=== PATIENT | female | born 1980 | race Caucasian/White ===

== ENCOUNTER 2017-06-05 19:11 | Emergency (ER) | payer MEDICAID ==
[~2017-06-05] VITALS: Ht 162.6 cm; Wt 97.0 kg
[~2017-06-05 19:11] MED LIST: IBUP200C PO; NAPR-688 PO; ONDA4TAB35 PO; RANI150T9 PO
[2017-06-05 19:20] VITALS: Ht 162.6 cm; Wt 97.0 kg
[2017-06-05 20:39] LABS: BASOPHILS % 0.5 % (0.0-2.0); EOSINOPHILS # 0.2 10^3/ul (0.0-0.5); EOSINOPHILS % 2.3 % (0.0-7.0); HEMATOCRIT 34.8 % (37.0-47.0); HEMOGLOBIN 11.9 g/dl (12.0-16.0); LYMPHOCYTES # 2.8 10^3/ul (0.8-2.9); LYMPHOCYTES % 37.7 % (15.0-51.0); MEAN CORPUSCULAR HEMOGLOBIN 27.7 pg (29.0-33.0); MEAN CORPUSCULAR HGB CONC 34.2 g/dl (32.0-37.0); MEAN CORPUSCULAR VOLUME 80.9 fl (82.0-101.0); MEAN PLATELET VOLUME 9.7 fl (7.4-10.4); MONOCYTE # 0.4 10^3/ul (0.3-0.9); MONOCYTES % 5.7 % (0.0-11.0); NEUTROPHILS % 53.1 % (39.0-77.0); PLATELET COUNT 225 10^3/UL (140-415); RED CELL DISTRIBUTION WIDTH 13.7 % (11.5-14.5); WHITE BLOOD COUNT 7.5 10^3/ul (4.8-10.8)
[2017-06-05 20:45] LABS: ADD UMIC YES; UR ASCORBIC ACID NEGATIVE (NEGATIVE); UR BILIRUBIN (Dip) NEGATIVE (NEGATIVE); UR BLOOD (Dip) 3+ mg/dL (NEGATIVE); UR CLARITY CLEAR (CLEAR); UR COLOR YELLOW (YELLOW); UR GLUCOSE (Dip) NEGATIVE (NEGATIVE); UR KETONES (Dip) NEGATIVE (NEGATIVE); UR LEUKOCYTE ESTERASE (Dip) TRACE Leu/ul (NEGATIVE); UR MUCUS FEW /HPF (NONE SEEN); UR NITRITE (Dip) NEGATIVE (NEGATIVE); UR RBC > 182 /HPF (0-5); UR SPECIFIC GRAVITY (Dip) 1.011 (1.003-1.030); UR TOTAL PROTEIN (Dip) NEGATIVE (NEGATIVE); UR UROBILINOGEN (Dip) NEGATIVE (NEGATIVE)
--- NOTE | 2017-06-05 20:47 | ERD ---
ER Documentation Chief Complaint Date/Time DATE: 06/05/17 TIME: 20:46 Chief Complaint vag bleed today, 5 weeks preg HPI 36 year old female comes in A1 with LMP 05/01/17 comes in with vagina bleeding and pelvic pain with small amounts of clots since today. Patient states she has cramping suprapubic pain. No fever, chest pain, dizziness. ROS All systems reviewed and are negative except as per history of present illness. Medications Home Meds Active Scripts Ondansetron Hcl* (Zofran* ODT) 4 mg -ODT Tab.disper, 4 MG PO Q6 Y for NAUSEA AND /OR VOMITING, #10 TAB Prov:DOMINICK ARTEAGA 04/24/16 Naproxen* (Naproxen*) 500 Mg Tablet, 500 MG PO BID Y for PAIN, #20 TAB Prov:CHANDLERDOMINICK DO 04/24/16 Ranitidine Hcl* (Zantac*) 150 Mg Tablet, 150 MG PO BID Y for EPIGASTRIC PAIN, # 30 TAB Prov:CHANDLERDOMINICK 04/24/16 Reported Medications Ibuprofen* (Ibuprofen*) 200 Mg Capsule, 200 MG PO QID Y for PAIN, CAP 04/24/16 Allergies Allergies: Coded Allergies: No Known Drug Allergies (Verified Allergy, Mild, 04/24/16) PMhx/Soc Medical and Surgical Hx: pt denies Medical Hx, pt denies Surgical Hx History of Surgery: Yes (S-SECTION X 2,L KNEE x 2) Anesthesia Reaction: No Hx Neurological Disorder: No Hx Respiratory Disorders: No Hx Cardiac Disorders: No Hx Psychiatric Problems: No Hx Miscellaneous Medical Probl: No Hx Alcohol Use: No Hx Substance Use: No Hx Tobacco Use: No Smoking Status: Never smoker Physical Exam Vitals Vital Signs Date Time Temp Pulse Resp B/P Pulse Ox O2 Delivery O2 Flow Rate FiO2 06/05/17 22:29 98.4 82 18 130/80 98 Room Air 06/05/17 19:20 99.1 75 18 142/89 98 Physical Exam Const: well appearing, nontoxic Head: Atraumatic Eyes: Normal Conjunctiva ENT: Normal External Ears, Nose and Mouth. Neck: Full range of motion..~ No meningismus. Resp: Clear to auscultation bilaterally Cardio: Regular rate and rhythm, no murmurs Abd: Soft, non tender, non distended. Normal bowel sounds Skin: No petechiae or rashes Back: No midline or flank tenderness Ext: No cyanosis, or edema Neur: Awake and alert Psych: Normal Mood and Affect Result Diagram: 06/05/172024 Results 24 hrs Laboratory Tests Test 06/05/17 20:03 06/05/17 20:25 Urine Color YELLOW Urine Clarity CLEAR Urine pH 6.0 Urine Specific [place] 1.011 Urine Ketones NEGATIVEmg/dL Urine Nitrite NEGATIVEmg/dL Urine Bilirubin NEGATIVEmg/dL Urine Urobilinogen NEGATIVEmg/dL Urine Leukocyte Esterase TRACELeu/ul Urine Microscopic RBC > 182/HPF Urine Microscopic WBC 0/HPF Urine Mucus FEW/HPF Urine Hemoglobin 3+mg/dL Urine Glucose NEGATIVEmg/dL Urine Total Protein NEGATIVEmg/dl White Blood Count 7.510^3/ul Red Blood Count 4.3010^6/ul Hemoglobin 11.9g/dl Hematocrit 34.8% Mean Corpuscular Volume 80.9fl Mean Corpuscular Hemoglobin 27.7pg Mean Corpuscular Hemoglobin Concent 34.2g/dl Red Cell Distribution Width 13.7% Platelet Count 69654^3/UL Mean Platelet Volume 9.7fl Neutrophils % 53.1% Lymphocytes % 37.7% Monocytes % 5.7% Eosinophils % 2.3% Basophils % 0.5% Nucleated Red Blood Cells % 0.0/100WBC Neutrophils # (Manual) 4.010^3/ul Lymphocytes # 2.810^3/ul Monocytes # 0.410^3/ul Eosinophils # 0.210^3/ul Basophils # 0.010^3/ul Nucleated Red Blood Cells # 0.010^3/ul Beta HCG, Quantitative 4461.7mIU/ml Radiology Main Line: [phone] DIAGNOSTIC IMAGING REPORT Patient: KEYONNA SAEED : 1980 Age: 36 Sex: F [id number] DOS: 06/05/172009 Ordering MD: ML MIRANDA PA-C Location: [facility] Room/Bed: PROCEDURE: OB Ultrasound. CLINICAL INDICATION: Positive test. Vaginal bleeding. TECHNIQUE: Ultrasound of the pelvis was performed with transabdominal and transvaginal sonography in the axial and sagittal planes. COMPARISON: No prior study is available for comparison. FINDINGS: There is a single intrauterine gestational sac. It is too early to visualize pole. Yolk sac is present. Mean sac diameter is 0.76 cm. Menstrual age by ultrasound dates is 5 weeks 3 days. This indicates an expected date of delivery of 02/02/2018. The right ovary appears normal measuring 2.8 x 1.8 x 1.4 cm. The left ovary appears normal measuring 2.3 x 1.7 x 1.5 cm. Color Doppler and pulsed Doppler sonography demonstrate normal flow to the ovaries. There is no other pelvic mass or free fluid. IMPRESSION: 1. Single small intrauterine gestational sac measuring 0.76 cm. It is too early to visualize pole. Yolk sac is present. Follow-up ultrasound in 10 days is advised. RPTAT: QQ .Zack Winters MD, Date Time Electronically viewed and signed by .Zack Winters MD, MD on 06/05/2017 21:54 .R/ CC: ML MIRANDA PA-C Procedures/MDM 36-year-old female presents with vaginal bleeding, at approximately 5 weeks. Pelvic ultrasound shows intrauterine gestational sac, yolk sac, no pole likely due to it being early versus threatened . Patient does not have evidence of ectopic , urinary tract infection, pyelonephritis, PID, cervicitis, hemodynamic instability. She will be also follow-up with her OB, recheck in 3-4 days.Patient is type and Rh O+, no indication for RhoGam. Departure Diagnosis: Primary Impression: Threatened Condition: ML Nielson PA-C Jun 05, 2017 20:47
--- NOTE | 2017-06-05 21:55 | RADRPT ---
PROCEDURE: OB Ultrasound. CLINICAL INDICATION: Positive test. Vaginal bleeding. TECHNIQUE: Ultrasound of the pelvis was performed with transabdominal and transvaginal sonography in the axial and sagittal planes. COMPARISON: No prior study is available for comparison. FINDINGS: There is a single intrauterine gestational sac. It is too early to visualize pole. Yolk sac i s present. Mean sac diameter is 0.76 cm. Menstrual age by ultrasound dates is 5 weeks 3 days. This indicates an expected date of delivery of 02/02/2018. The right ovary appears normal measuring 2.8 x 1.8 x 1.4 cm. The left ovary appears normal measuring 2.3 x 1.7 x 1.5 cm. Color Doppler and pulsed Doppler sonography demonstrate normal flow to the ovaries. There is no other pelvic mass or free fluid. IMPRESSION: 1. Single small intrauterine gestational sac measuring 0.76 cm. It is too early to visualize pole. Yolk sac is present. Follow-up ultrasound in 10 days is advised. RPTAT: QQ .Zack Winters MD, MD Date Time Electronically viewed and signed by .Zack Winters MD, on 06/05/2017 21:54 .R/
[2017-06-05 22:29] VITALS: BP 130/80; PULSE 82; RESP 18; TEMP 98.4
== END 2017-06-05 22:29 | disposition home or self-care (01) ==
LOC: FTE 19:11
DX: O20.0 Threatened abortion (principal); Z3A.01 Less than 8 weeks gestation of pregnancy
CPT/HCPCS: 36415; 76801; 76817; 81001; 84702; 85025; 86900; 86901; Z7502

== ENCOUNTER 2018-07-13 19:09 | Outpatient (CLI) | END 2018-07-13 21:40 | disposition home or self-care (01) ==

== ENCOUNTER 2018-08-10 18:24 | Outpatient (CLI) | END 2018-08-11 00:15 | disposition home or self-care (01) ==

== ENCOUNTER 2018-08-12 12:38 | Outpatient (CLI) | END 2018-08-12 17:10 | disposition home or self-care (01) ==

== ENCOUNTER 2018-08-15 18:03 | Outpatient (CLI) | END 2018-08-15 21:09 | disposition home or self-care (01) ==

== ENCOUNTER 2018-08-18 18:17 | Outpatient (CLI) | END 2018-08-18 19:57 | disposition home or self-care (01) ==